=== PATIENT | male | born 1980 | race Caucasian/White ===

== ENCOUNTER 2020-06-01 03:23 | Emergency (ER) | payer SELFPAY ==
[2020-06-01] MEDS ORDERED: Fluorescein Opthalmic Strip ONE (03:33)
[2020-06-01] MEDS ORDERED: Proparacaine 0.5% Opth 15 ML BOT ONE (03:33)
== END 2020-06-01 04:00 | disposition home or self-care (01) ==
LOC: ERS 03:23
DX: H16.001 Unspecified corneal ulcer, right eye (principal); F17.210 Nicotine dependence, cigarettes, uncomplicated
CPT/HCPCS: 99283